=== PATIENT | female | born 1990 | race Caucasian/White ===

== ENCOUNTER 2018-08-03 19:57 | Emergency (ER) | payer BC ==
[~2018-08-03] VITALS: Ht 162.6 cm; Wt 73.5 kg
--- NOTE | 2018-08-03 20:30 | NUR ---
Pt. ambulated into ED w/ dog bite to hands and arms, occurred approx. 1830 w/ neighbors dog when trying to pet it., pt. unaware of when she received last tetanus shot, presents w/ deep laceration in between the pointer and middle finger of L hand and small laceration to pad/tip of middle finger on R hand, abrasions also noted on L arm, wounds cleaned w/ normal saline solution and dressed lightly w/ gauze, CMS on fingers intact,
--- NOTE | 2018-08-03 20:35 | NUR ---
at bedside for MSE
--- NOTE | 2018-08-03 20:40 | NUR ---
Soaked hands in betadyne/normal saline solution per MD request for 15 minutes,
[2018-08-03] MEDS ORDERED: HYDROCODONE/APAP 10-325 MG TABLET PO ONE (20:45)
[2018-08-03] MEDS ORDERED: ONDANSETRON ODT 4 MG TAB.RAPDIS SL ONE (20:45)
[2018-08-03] MEDS ORDERED: LIDOCAINE HCL 1% 20 ML VIAL TP ONE ×2 (20:45)
[2018-08-03] MEDS ORDERED: AMOXICILLIN-CLAVUL 875-125MG TABLET PO ONE (20:45)
[2018-08-03] MEDS ORDERED: TDAP DIPH,PERTUSS,TET VAC/PF 0.5 ML DISP.SYRIN IM ONE ×2 (20:45→20:53)
[2018-08-03] MEDS ORDERED: ONDANSETRON ODT 4 MG TAB.RAPDIS ONE (20:52)
[2018-08-03] MEDS ORDERED: AMOXICILLIN-CLAVUL 875-125MG TABLET ONE (20:52)
[2018-08-03] MEDS ORDERED: HYDROCODONE/APAP 10-325 MG TABLET ONE (20:53)
--- NOTE | 2018-08-03 21:06 | NUR ---
at bedside for suture procedure,
--- NOTE | 2018-08-03 21:39 | NUR ---
Patient discharged to home in stable conditon. Written and verbal after care instructions given. Patient verbalizes understanding of instructions. Pt. d/c w/ prescription per MD order, all d/c papers signed, ID band removed, left in private vehicle, instructed not to drive, ambulated out of ED w/ steady gait, left in private vehicle, NAD
[2018-08-03] MEDS ORDERED: NEOMY/BACITRA/POLYMYXIN B OINT UD PACKET TP ONE (21:45)
== END 2018-08-03 21:40 | disposition home or self-care (01) ==
LOC: ER 19:59
DX: S61.212A Laceration without foreign body of right middle finger without damage to nail, initial encounter (principal); S61.412A Laceration without foreign body of left hand, initial encounter; S61.252A Open bite of right middle finger without damage to nail, initial encounter; S61.452A Open bite of left hand, initial encounter; W54.0XXA Bitten by dog, initial encounter; Y93.89 Activity, other specified; Y92.89 Other specified places as the place of occurrence of the external cause; Y99.8 Other external cause status
CPT/HCPCS: 12002; 90471; 90715; 99284; J3490; A4217; A4663; Q0162

== ENCOUNTER 2018-08-06 17:01 | Emergency (ER) | payer BC ==
[~2018-08-06] VITALS: Ht 162.6 cm; Wt 73.5 kg
[2018-08-06] MEDS ORDERED: ONDANSETRON ODT 4 MG TAB.RAPDIS ONE (17:38)
--- NOTE | 2018-08-06 17:49 | NUR ---
PT WAS EVALUATED BY DR ESQUEDA. PT WA D/C'D TO HOME. D/C INSTRUCTIONS GIVEN TO THE PT.
[2018-08-06 17:50] VITALS: BP 129/68
--- NOTE | 2018-08-11 08:10 | NUR ---
I spoke with yesterday (08/10/18) and she confirmed she had verbally given the order for Zofran 8mg ODT x 1 to Alessio SIMEON on 08/06/18 at 1738 because the patient was c/o nausea after taking Augmention (pt's own med as she was already on it). The medication (Zofran) was removed from pyxis and administered as verbally ordered.
[2018-08-11] MEDS ORDERED: ONDANSETRON ODT 4 MG TAB.RAPDIS SL ONE (08:11)
== END 2018-08-06 17:50 | disposition home or self-care (01) ==
LOC: ER 17:03
DX: S61.212D Laceration without foreign body of right middle finger without damage to nail, subsequent encounter (principal); S61.412D Laceration without foreign body of left hand, subsequent encounter; L08.9 Local infection of the skin and subcutaneous tissue, unspecified; W54.0XXD Bitten by dog, subsequent encounter
CPT/HCPCS: A4663; Q0162

== ENCOUNTER 2018-08-13 23:06 | Emergency (ER) | payer BC, MEDICAID ==
[~2018-08-13] VITALS: Ht 165.1 cm; Wt 65.8 kg
--- NOTE | 2018-08-13 23:15 | NUR ---
Dr. Key at bedside for MSE.
--- NOTE | 2018-08-13 23:19 | NUR ---
Patient discharged to home in stable conditon. Written and verbal after care instructions given. Patient verbalizes understanding of instructions. Patient ambulated out of ER with steady gait, no acute signs of distress, VSS, all belongings taken.
[2018-08-13 23:21] VITALS: BP 98/55
== END 2018-08-13 23:23 | disposition home or self-care (01) ==
LOC: ER 23:08
DX: S61.412D Laceration without foreign body of left hand, subsequent encounter (principal); S61.411D Laceration without foreign body of right hand, subsequent encounter; X58.XXXD Exposure to other specified factors, subsequent encounter
CPT/HCPCS: A4663